=== PATIENT | female | born 1940 | race Caucasian/White ===

== ENCOUNTER 2016-10-19 14:33 | Emergency (ER) | payer OTHER ==
--- NOTE | ~2016-10-19 | CT71 ---
[facility]. [facility] A Service of [facility] & [facility] RADIOLOGY TEXT RESULTS PATIENT: JOSE LUIS COTE LOCATION: SED : 38 UNIT #: [id number] AGE: [address]: Antoine Hernandez MD SEX: F ORDER DR: [id number] [place] [id number] E MR#: [id number] Acc #: [id number] NAME: JOSE LUIS COTE : 1940 SEX: F STUDY DATE/TIME: 10/19/2016 14:42 UNIT: SED ROOM: STUDY DESCRIPTION: CT Head Wo Contrast Attending Physician: Antoine Hernandez M.D. Ordering Physician: Antoine Hernandez M.D. Primary Care Physician: Reece Martínez M.D. MEDICAL IMAGING REPORT This report is preliminary unless electronic signature is present. EXAM CT head, 10/19/2016. HISTORY Hit head on concrete. No loss of consciousness. Slip and fall today at home. Posterior head knot and pain. TECHNIQUE CT head performed skull base through vertex without intravenous contrast. This CT exam was performed with one or more of the following radiation dose reduction techniques: automatic exposure control, adjustment of mA and/or kV according to patient size, and iterative reconstruction. COMPARISON 07/24/2013 FINDINGS Brainstem unremarkable. Cerebellum and cerebral hemispheres show preservation of ybarra matter-white matter differentiation without evidence of acute cortical ischemia. There is a left parafalcine subdural hematoma. It measures about 3-4 mm in thickness and probably extends over an anterior to posterior extent of at least 6-7 cm. There is no significant mass effect on adjacent brain. There may be a subtle area of left parafalcine subdural hematoma along the anterior-inferior falx measuring about 2 mm in thickness with no mass effect on adjacent brain. No other areas of acute intracranial hemorrhage are suggested. No parenchymal hemorrhage. Periventricular and deep white matter tract probable sequelae of chronic microvascular ischemia based on patient age and statistics. Midline structures are nondisplaced. Ventricles, cisterns, and sulci show mild generalized enlargement consistent with mild generalized atrophy. No acute basal ganglia abnormality. Cavernous carotid and distal vertebral arterial calcifications. No intra or STS. [facility] A Service of [facility] & [facility] RADIOLOGY TEXT RESULTS PATIENT: JOSE LUIS COTE LOCATION: SED : 38 UNIT #: [id number] AGE: [address]: Antoine Hernandez MD SEX: F ORDER DR: extraaxial mass effect. No fracture. Visualized paranasal sinuses and mastoid air cells are clear. Large posterolateral left parietal scalp hematoma measuring about 1.9 cm in thickness by approximately 9 cm in overall diameter. No associated soft tissue defect, subcutaneous air, or radiodense foreign body. Some images degraded by motion artifact. IMPRESSION 1. Finding discussed with Dr. Hernandez at time of this dictation. There is a left parafalcine subdural hematoma. It measures up to about 3 mm in maximum thickness toward the vertex. There is no mass effect on adjacent brain. It extends at least 7 cm in length and there is a secondary smaller left parafalcine subdural hematoma component along the anterior-inferior falx which measures up to perhaps 2 mm in thickness with no mass effect on adjacent brain. 2. No intraparenchymal hemorrhage. 3. Mild generalized atrophy. 4. Periventricular and deep white matter tract probable sequelae of chronic microvascular ischemia based on patient's age and statistics. 5. Cavernous carotid arterial calcifications. 6. No fracture. 7. Prominent posterior left parietal scalp hematoma measuring about 9.1 cm in diameter by about 1.9 cm in thickness. No associated soft tissue defect, subcutaneous air, or radiodense foreign body. Dictated by... Rolly Damian M.D. THIS IS AN ELECTRONICALLY VERIFIED REPORT Rolly Damian M.D. at 10/20/2016 6:26 PM Madi TD: 10/19/2016 16:07 JOB #: [id number] MEDICAL IMAGING REPORT Page 1 of 1
[~2016-10-19 14:33] MED LIST: ASPIRIN81 M1 PO; ATIVAN PO; ATIVAN0.5 MG PO; CATAPRES0.1 MG PO; COMBIGAN EYE DRO5 ML OP; DIOVAN HCT 160/1 TAB PO; DIOVAN HCT 3201 EACH PO; DIOVAN320 MG PO; FIORICET1 TAB PO; GLAUCOMA DROPS OU; LIPITOR PO; LOSARTAN POTAS100 MG PO; MEDROL DOSEPAK4 MG PO; PEPTO-BISMOL262 M1 PO; PRILOSEC20 MG DOB; SYNTHROID PO; TOPROL XL PO; ZOFRANODT PO
[2016-10-19 15:46] LABS: BASOPHIL# 0.1 X10e3 (0-0.3); BASOPHIL% 0.8 % (0-2.5); EOSINOPHIL# 0.6 X10e3 (0-0.7); EOSINOPHIL% 7.1 % (0.0-7.0); HEMATOCRIT 43.9 % (35.0-45.0); HEMOGLOBIN 14.5 gm/dL (12.0-16.0); LYMPHOCYTE# 2.3 X10e3 (1.0-3.5); LYMPHOCYTE% 25.1 % (17.0-45.0); MEAN CORPUSCULAR HEMOGLOBIN 28.1 PG (28-34); MEAN CORPUSCULAR HGB CONC 33.1 g/dL (30-36); MEAN PLATELET VOLUME 8.8 FL (6.5-11.5); MONOCYTE# 0.6 X10e3 (0-1.0); MONOCYTE% 7.1 % (3.0-12.0); NEUTROPHIL# 5.4 X10e3 (1.5-7.1); NEUTROPHIL% 59.9 % (40-75); PLATELET COUNT 191 X10e3 (140-420); RED BLOOD COUNT 5.16 X10e (3.90-5.30); RED CELL DISTRIBUTION WIDTH 14.1 % (11.0-15.5); WHITE BLOOD COUNT 9.1 X10e3 (4.0-10.5)
[2016-10-19 15:51] LABS: DIFF IND NO
[2016-10-19 15:57] LABS: PROTHROMBIN TIME (PATIENT) 11.5 SECONDS (9.5-12.4)
[2016-10-19 16:04] LABS: PARTIAL THROMBOPLASTIN TIME 32.5 SECONDS (25.6-38.1)
[2016-10-19 16:07] LABS: ALBUMIN SERUM 4.5 g/dL (3.5-5.0); BILIRUBIN, DIRECT 0.2 mg/dL (0.0-0.2); BILIRUBIN,INDIRECT 0.6 mg/dL (0.0-0.9); BILIRUBIN,TOTAL 0.8 mg/dL (0.2-2.0); BUN/CREATININE RATIO 27.14; CREATININE SERUM 0.7 mg/dL (0.6-1.4); PROTEIN TOTAL SERUM 8.3 g/dL (6.0-8.3)
== END 2016-10-19 16:27 | disposition hospice, home (50) ==
LOC: SED 14:33
PROVIDERS: Emergency Medicine
DX: S06.5X0A Traumatic subdural hemorrhage without loss of consciousness, initial encounter (principal); E03.9 Hypothyroidism, unspecified; F41.9 Anxiety disorder, unspecified; I10 Essential (primary) hypertension; Z79.899 Other long term (current) drug therapy; W01.198A Fall on same level from slipping, tripping and stumbling with subsequent striking against other object, initial encounter; Y92.009 Unspecified place in unspecified non-institutional (private) residence as the place of occurrence of the external cause
CPT/HCPCS: 70450; 80048; 80076; 85025; 85610; 85730; 99285